=== PATIENT | female | born 1985 | race Caucasian/White ===

== ENCOUNTER → 2020-03-22 | Outpatient (CLI) | payer MEDICAID, OTHER ==
--- NOTE | 2020-03-22 17:58 | US ---
EXAMINATION TYPE: US carotid duplex BILAT DATE OF EXAM: 03/22/2020 COMPARISON: NONE CLINICAL HISTORY: 35-year-old female I10 Hypertension, R20.2 Paresthesia of Skin, R00.2. HTN, facial numbness TECHNIQUE: Carotid duplex ultrasound examination. Indirect Doppler criteria was utilized. FINDINGS: EXAM MEASUREMENTS: RIGHT: Peak Systolic Velocity (PSV) cm/sec ----- Right CCA: 123 ----- Right ICA: 116 ----- Right ECA: 94.8 ICA/CCA ratio: 0.9 RIGHT: End Diastole cm/sec ----- Right CCA: 33.8 ----- Right ICA: 50.0 ----- Right ECA: 22.1 LEFT: Peak Systolic Velocity (PSV) cm/sec ----- Left CCA: 110 ----- Left ICA: 105 ----- Left ECA: 141 ICA/CCA ratio: 1.0 LEFT: End Diastole cm/sec ----- Left CCA: 44.2 ----- Left ICA: 44.8 ----- Left ECA: 33.0 VERTEBRALS (direction of flow): Right Vertebral: Antegrade Left Vertebral: Antegrade Rhythm: Normal Ship Design Teacher notes: No evidence of significant stenosis IMPRESSION: No hemodynamically significant internal carotid artery stenosis on either side. Criteria for Assigning % of Stenosis / Diameter reduction (Estimation based on the indirect measurements of the internal carotid artery velocities (ICA PSV). 1. Normal (no stenosis)=ICA PSV < 125 cm/s: ratio < 2.0: ICA EDV<40 cm/s. 2. Less than 50% stenosis=ICA PSV < 125 cm/s: ratio < 2.0: ICA EDV<40 cm/s. 3. 50 to 69% stenosis=ICA PSV of 125 to 230 cm/s: ration 2.0 ? 4.0: ICA EDV 40-100 cm/s. 4. Greater than 70% stenosis to near occlusion= ICA PSV > 230 cm/s: ratio > 4.0: ICA EDV > 100 cm/s. 5. Near occlusion= ICA PSV velocities may be low or undetectable: variable ratio and ICA EDV. 6. Total occlusion=unable to detect flow.
--- NOTE | 2020-03-23 17:00 | ECHOF ---
Referral Reason:I10 Hypertension, R20.2 Paresthia of Skin, R00.2.. MEASUREMENTS -------- HEIGHT: 165.1 cm WEIGHT: 61.2 kg BP: 134/93 RVIDd: 2.5 cm (< 3.3) IVSd: 1.0 cm (0.6 - 1.1) LVIDd: 5.0 cm (3.9 - 5.3) LVPWd: 0.9 cm (0.6 - 1.1) IVSs: 1.4 cm LVIDs: 3.2 cm LVPWs: 1.6 cm LA Diam: 2.9 cm (2.7 - 3.8) Ao Diam: 3.0 cm (2.0 - 3.7) AV Cusp: 2.3 cm (1.5 - 2.6) MV EXCURSION: 19.176 mm (> 18.000) MV EF SLOPE: 177 mm/s (70 - 150) EPSS: 0.5 cm MV E Catracho: 0.87 m/s MV DecT: 209 ms MV A [place]: 0.49 m/s MV E/A Ratio: 1.78 RAP: 5.00 mmHg RVSP: 20.05 mmHg FINDINGS -------- Sinus rhythm. This was a technically good study. The left ventricular size is normal. Left ventricular wall thickness is normal. Overall left vent ricular systolic function is normal with, an EF between 60 - 65 %. The right ventricle is normal in size. The left atrium is normal in size. The right atrium is normal in size. Interatrial and interventricular septum intact. The aortic valve is trileaflet and appears structurally normal. Trace amount of aortic regurgitatio n. The mitral valve is normal. Mild tricuspid regurgitation present. Right ventricular systolic pressure is normal at < 35 mmHg. Pulmonic valve appears structurally normal. The aortic root size is normal. Normal inferior vena cava with normal inspiratory collapse consistent with estimated right atrial pre ssure of 5 mmHg. There is no pericardial effusion. CONCLUSIONS -------- 1. The left ventricular size is normal. 2. Left ventricular wall thickness is normal. 3. Overall left ventricular systolic function is normal with, an EF between 60 - 65 %. 4. The aortic valve is trileaflet and appears structurally normal. 5. Trace amount of aortic regurgitation. 6. Mild tricuspid regurgitation present. 7. There is no pericardial effusion. VEGETABLE PACKER: Chelsea Mullins RDCS
== END | disposition home or self-care (01) ==
LOC: RADUSWWP 14:08
PROVIDERS: ATTEND Family Medicine
DX: I10 Essential (primary) hypertension (principal); R20.2 Paresthesia of skin; R00.2 Palpitations
CPT/HCPCS: 93306; 93880

== ENCOUNTER → 2020-05-09 | Outpatient (CLI) | payer MEDICAID, OTHER ==
--- NOTE | 2020-05-09 09:00 | MR ---
EXAMINATION TYPE: MR brain wo/w con DATE OF EXAM: 05/09/2020 COMPARISON: NONE HISTORY: Dizziness, numbness, tingling of the face and neck, headaches. TECHNIQUE: Multiplanar, multisequence images of the brain and brainstem is performed without and with IV contras t, utilizing 6.0 mL intravenous Gadavist . FINDINGS: Diffusion weighted images demonstrate no evidence of a recent infarct or other diffusion ab normality. There is no worrisome extra-axial fluid collection. The ventricular system and cisternal spaces are normal in size and appearance. The brain volume is age appropriate. Single elongated 3 x 1 mm T2 hyperintense lesion posterior right frontal lobe axial image 22. Possible occasional additio nal scattered tiny lesion. Less than 5 lesions are present. Midline structures demonstrate normal morphology. The craniocervical junction appears within normal limits. Post contrast images demonstrate no abnormal enhancement. The dural venous sinuses appear pa tent. The visualized sinuses are clear and the globes are intact. Some patchy opacity in the right ma stoid air cells. Nasal septum deviated to right of midline. IMPRESSION: 1. Mild patchy fluid right mastoid air cells could reflect product of mastoiditis, correlate clinical ly. 2. Minimal nonspecific white matter changes. Findings may be on the basis of altered vascular mechani cs related to products of migraine headaches. No suspicious enhancement noted.
== END ==
LOC: RADMRIMAIN 08:08
PROVIDERS: ATTEND Psychiatry & Neurology Neurology
DX: R90.89 Other abnormal findings on diagnostic imaging of central nervous system (principal)
CPT/HCPCS: 70553; A9585